=== PATIENT | female | born 1985 | race Caucasian/White ===

== ENCOUNTER 2016-10-19 14:28 | Emergency (ER) | payer OTHER ==
[~2016-10-19 14:28] MED LIST: LORTAB 7.5/5001 TAB PO; MOTRIN600 MG PO; NO MEDICATIONS; PREDNISONE20 MG PO; PRENATAL VITAMI1 TAB PO; TYLENOL W/CODEI1 TAB PO; VENTOLIN HFA18 G1 IH; VICODIN 5/500 T1 TAB PO
[2016-10-19] MEDS ORDERED: NO HOME MEDICATION XX (14:41)
[2016-10-19 15:16] LABS: BASO % 2.2 % (0-2); BASO ABSOLUTE COUNT 0.2 tho/cmm (0.0-0.2); EOS % 2.1 % (0-7); EOSINOPHIL ABSOLUTE COUNT 0.2 tho/cmm (0.0-0.7); HCT-HEMATOCRIT 40.6 % (34.0-49.0); HGB-HEMOGLOBIN 13.7 gm/dl (12.0-15.5); IMMATURE GRANULOCYTES ABSOLUTE 0.02 tho/cmm (0-0.03); IMMATURE GRANULOCYTES PERCENT 0.2 % (0-0.3); MCHC MEAN CORPUSCULAR HGB CONC 33.7 % (32.0-36.0); MCV (MEAN CELL VOLUME) 82.9 fl (82.0-96.0); MEAN PLATELET VOLUME 10.3 cmc (9.4-12.4); MONO % 4.5 % (0-12); MONOCYTE ABSOLUTE COUNT 0.4 tho/cmm (0.0-1.2); NEUTROPHIL ABSOLUTE COUNT 6.2 tho/cmm (1.6-8.0); NEUTROPHIL-AUTOMATED 6.2 tho/cmm (1.6-8.0); PLATELET COUNT 262 tho/cmm (150-450); RED CELL DISTRIBUTION WIDTH 13.8 % (12.4-16.4)
[2016-10-19 15:26] LABS: PREGNANCY-SERUM NEGATIVE (NEGATIVE)
[2016-10-19 15:33] LABS: ALB/GLOB RATIO 0.9 (0.8-2.0); ALBUMIN 3.4 g/dl (3.5-5.0); ALKALINE PHOSPHATASE 99 U/L (33-138); ALT/SGPT 60 U/L (12-78); ANION GAP 10 mmol/L (0-20); AST/SGOT 28 U/L (10-40); BILIRUBIN,TOTAL 0.3 mg/dl (0-1.5); BLOOD UREA NITROGEN 10 mg/dl (6-24); CALCIUM 8.4 mg/dl (8.5-10.5); CARBON DIOXIDE-VENOUS 25 mmol/L (22-32); CHLORIDE 110 mmol/l (96-110); CREATININE 0.84 mg/dl (0.50-1.10); GLUCOSE 87 mg/dL (70-110); POTASSIUM 3.9 mmol/L (3.7-5.1); SODIUM 141 mmol/L (135-145); eGFR VALUE FOR BLACK >90 mL/Min
[2016-10-19] MEDS ORDERED: FLAGYL500 M1 PO (16:32)
[2016-10-19 16:41] LABS: URINE APPEARANCE CLOUDY; URINE BILIRUBIN NEGATIVE (NEG); URINE BLOOD NEGATIVE (NEG); URINE COLOR YELLOW; URINE GLUCOSE (UA) NEGATIVE (NEG); URINE KETONE NEGATIVE (NEG); URINE LEUKOCYTE ESTERASE POSITIVE (NEG); URINE NITRITE NEGATIVE (NEG); URINE PROTEIN NEGATIVE (NEG)
[2016-10-19 16:47] LABS: URINE BACTERIA 1+; URINE RBC 0 /[HPF] (0-5); URINE WBC 0-1 /[HPF] (0-5)
== END 2016-10-19 16:51 ==
LOC: EDMED 14:28
PROVIDERS: Physician Assistant
DX: R55 Syncope and collapse (principal); N76.0 Acute vaginitis; B96.89 Other specified bacterial agents as the cause of diseases classified elsewhere; F17.210 Nicotine dependence, cigarettes, uncomplicated; Z90.49 Acquired absence of other specified parts of digestive tract; Z88.0 Allergy status to penicillin
CPT/HCPCS: J1885; J7030

== ENCOUNTER 2016-10-22 06:51 | Emergency (ER) | payer OTHER ==
[~2016-10-22 06:51] MED LIST changes: +FLAGYL500 M1 PO; +NO HOME MEDICATION XX
[2016-10-22] MEDS ORDERED: FLAGYL500 M1 PO (07:00)
[2016-10-22] MEDS ORDERED: NORCO 5-325 TA1 EACH PO (08:43)
[2016-10-22] MEDS ORDERED: COMPAZINE10 MG PO (08:43)
== END 2016-10-22 09:27 ==
LOC: EDMED 06:51
DX: F07.81 Postconcussional syndrome (principal); R55 Syncope and collapse; Z90.49 Acquired absence of other specified parts of digestive tract; Z98.890 Other specified postprocedural states; F17.200 Nicotine dependence, unspecified, uncomplicated
CPT/HCPCS: J1200; J1885; J2405; J7030